=== PATIENT | female | born 1990 | race Caucasian/White ===

== ENCOUNTER 2017-06-17 05:46 | Outpatient (CLI) | payer OTHER ==
--- NOTE | 2017-05-29 02:15 | PN ---
Triage Information Date/Time Weeks of Gestation 27+wks : 2 Para: 0 Diabetes: none Objective Heart Rate: 140's Contractions: None Exam CXL WNL NST reassuring for GA Devon No CTXs Abdo soft NT ND Assessment/Plan Discharged with precautions patient's questions answered MARIELA JUAREZ M.D. May 29, 2017 02:15
[~2017-06-17] VITALS: Ht 152.4 cm; Wt 77.1 kg
[~2017-06-17 05:46] MED LIST: PREN-39 PO
[2017-06-17 06:03] VITALS: Ht 152.4 cm; Wt 77.1 kg
[2017-06-17 06:04] VITALS: BP 107/59; PULSE 82; RESP 18
--- NOTE | 2017-06-17 07:37 | RADRPT ---
PROCEDURE: Biophysical profile CLINICAL INDICATION: distress TECHNIQUE: Color and sullivan-scale ultrasound images of an intrauterine gestation were obtained. COMPARISON: May 29, 2017 FINDINGS: A single live intrauterine gestation is identified in vertex position with an estimated heart rate of 157 beats per minute. The placenta is located posteriorly. The cervix is obscured by head shadows. No evidence of abruption identified. ROYER is 12.8 cm. movement 2/2. tone 2/2. breathing movement 2/2. Qualitative AFV 2/2 Total biophysical profile 07/05 IMPRESSION: 07/05 biophysical profile. RPTAT: AA .Adiel Novoa MD, Date Time Electronically viewed and signed by .Adiel Novoa MD, on 06/17/2017 07:37 .P/
[2017-06-17 07:44] LABS: ADD SCAN DIFF NO
[2017-06-17 07:47] LABS: BASOPHILS % 0.2 % (0.0-2.0); EOSINOPHILS # 0.1 10^3/ul (0.0-0.5); EOSINOPHILS % 0.7 % (0.0-7.0); HEMATOCRIT 34.3 % (37.0-47.0); HEMOGLOBIN 11.4 g/dl (12.0-16.0); LYMPHOCYTES # 1.1 10^3/ul (0.8-2.9); LYMPHOCYTES % 9.2 % (15.0-51.0); MEAN CORPUSCULAR HEMOGLOBIN 28.9 pg (29.0-33.0); MEAN CORPUSCULAR HGB CONC 33.2 g/dl (32.0-37.0); MEAN CORPUSCULAR VOLUME 86.8 fl (82.0-101.0); MEAN PLATELET VOLUME 11.9 fl (7.4-10.4); MONOCYTE # 0.6 10^3/ul (0.3-0.9); MONOCYTES % 4.6 % (0.0-11.0); NEUTROPHIL # 10.4 10^3/ul (1.6-7.5); NEUTROPHILS % 84.6 % (39.0-77.0); PLATELET COUNT 197 10^3/UL (140-415); RED BLOOD COUNT 3.95 10^6/ul (4.20-5.40); RED CELL DISTRIBUTION WIDTH 14.6 % (11.5-14.5); WHITE BLOOD COUNT 12.3 10^3/ul (4.8-10.8)
[2017-06-17 08:09] LABS: ADD UMIC YES; UR ASCORBIC ACID NEGATIVE (NEGATIVE); UR BACTERIA FEW /HPF (NONE SEEN); UR BILIRUBIN (Dip) NEGATIVE (NEGATIVE); UR BLOOD (Dip) 1+ mg/dL (NEGATIVE); UR CLARITY CLOUDY (CLEAR); UR COLOR AMBER (YELLOW); UR GLUCOSE (Dip) NEGATIVE (NEGATIVE); UR KETONES (Dip) NEGATIVE (NEGATIVE); UR LEUKOCYTE ESTERASE (Dip) 3+ Leu/ul (NEGATIVE); UR MUCUS MANY /HPF (NONE SEEN); UR NITRITE (Dip) NEGATIVE (NEGATIVE); UR RBC 8 /HPF (0-5); UR SPECIFIC GRAVITY (Dip) 1.028 (1.003-1.030); UR SQUAMOUS EPITHELIAL CELL MANY /HPF (FEW); UR TOTAL PROTEIN (Dip) 2+ mg/dl (NEGATIVE); UR UROBILINOGEN (Dip) NEGATIVE (NEGATIVE)
[2017-06-17 08:13] LABS: ALBUMIN 3.2 g/dl (3.3-4.9); ALBUMIN/GLOBULIN RATIO 1.06; BILIRUBIN,INDIRECT 0.2 mg/dl (0-1.1); BILIRUBIN,TOTAL 0.2 mg/dl (0.2-1.3); CALCIUM 9.1 mg/dl (8.4-10.2); CREATININE 0.57 mg/dl (0.44-1.00); TOTAL PROTEIN 6.2 g/dl (6.1-8.1)
--- NOTE | 2017-06-17 08:23 | PN ---
Triage Information Date/Time 06/17/800 Weeks of Gestation IUP 30w2d : 3 Para: 1 Diabetes: none Hypertention: none Objective Vital Signs Date Time Temp Pulse Resp B/P Pulse Ox O2 Delivery O2 Flow Rate FiO2 06/17/17 06:04 97.6 82 18 107/59 Room Air Heart Rate: 130's Contractions: >10 Minutes Apart Results/Medications Result Diagram: 06/17/17 07 Results 24 hrs Laboratory Tests Test 06/17/17 07:22 White Blood Count 12.3 #H Red Blood Count 3.95 L Hemoglobin 11.4 L Hematocrit 34.3 L Mean Corpuscular Volume 86.8 Mean Corpuscular Hemoglobin 28.9 L Mean Corpuscular Hemoglobin Concent 33.2 Red Cell Distribution Width 14.6 H Platelet Count 197 Mean Platelet Volume 11.9 H Neutrophils % 84.6 H Lymphocytes % 9.2 L Monocytes % 4.6 Eosinophils % 0.7 Basophils % 0.2 Neutrophils # 10.4 H Lymphocytes # 1.1 Monocytes # 0.6 Eosinophils # 0.1 Basophils # 0.0 Nucleated Red Blood Cells # 0.0 Assessment/Plan IUP 30w 2d AGE Plan clear liquid diet cmp cbc BPP ROYER Lab still pending d/s will be decided by laborist today LISHA TAMAYO MD Jun 17, 2017 08:19
[2017-06-17] MEDS ORDERED: ONDANSETRON 4 MG INJ IV STA (08:52)
[2017-06-17] MEDS ORDERED: LACTATED RINGER'S 1,000 ML IV ONE (09:00)
--- NOTE | 2017-06-17 12:07 | RADRPT ---
PROCEDURE: US OB. CLINICAL INDICATION: Evaluate cervical length. TECHNIQUE: Transabdominal views of the pelvis are available for review. COMPARISON: Earlier study from the same date. FINDINGS: There is a single living intrauterine gestation in breech position. There is a posterior placenta. There is no evidence of previa. There is adequate amniotic fluid with an amniotic fluid index of 1 2.8 cm. Cervical length is 4.4 cm. Cardiac activity is at 148 beats per minute. IMPRESSION: 1. Single living intrauterine gestation in breech position with a closed cervix which measures 4.4 c m in length. RPTAT: [facility] Physician Yojana Date Time Electronically viewed and signed by Physician Yojana on 06/17/2017 12:07 /
--- NOTE | 2017-06-17 12:26 | TRIAGE ---
OB Triage Datetime Report Generated by CPN: 06/17/2017 12:26 Datetime: 06/17/2017 11:46 Labor Evaluation Frequency: 0 Monitor Mode: External Pattern: Normal: <= 5 Contractions in 10 Minutes Resting Tone [place]: Relaxed Heart Rate FHR Baseline Rate: 135 Monitor Mode: External US Variability: Moderate 6-25 bpm Accelerations: 15X15 Decelerations: None Category: Category I Pain Presence: None/Denies Pain Type: N/A Datetime: 06/17/2017 10:31 Stage of : OB Triage Labor Evaluation Frequency: 0 Monitor Mode: External Pattern: Normal: <= 5 Contractions in 10 Minutes Heart Rate FHR Baseline Rate: 145 Variability: Moderate 6-25 bpm Accelerations: 15X15 Decelerations: None Category: Category I Pain Presence: None/Denies Pain Type: N/A Datetime: 06/17/2017 09:32 Labor Evaluation Frequency: 0 Monitor Mode: External Pattern: Normal: <= 5 Contractions in 10 Minutes Heart Rate FHR Baseline Rate: 145 Monitor Mode: External US Variability: Moderate 6-25 bpm Accelerations: 15X15 Decelerations: None Category: Category I Pain Presence: None/Denies Pain Type: N/A Datetime: 06/17/2017 08:13 Stage of : OB Triage Nausea/Vomiting: Present Labor Evaluation Frequency: 0 Monitor Mode: External Pattern: Normal: <= 5 Contractions in 10 Minutes Resting Tone [place]: Relaxed Heart Rate FHR Baseline Rate: 135 Monitor Mode: External US Variability: Absent - Undetectable Accelerations: 15X15 Decelerations: None Category: Category I Datetime: 06/17/2017 07:35 Stage of : OB Triage Labor Evaluation Frequency: 0 Pattern: Normal: <= 5 Contractions in 10 Minutes Resting Tone [place]: Relaxed Heart Rate FHR Baseline Rate: 145 Monitor Mode: External US Variability: Moderate 6-25 bpm Accelerations: 15X15 Decelerations: None Category: Category I Pain Presence: None/Denies Pain Type: N/A Datetime: 06/17/2017 07:00 Stage of : OB Triage Labor Evaluation Frequency: OCCASS Monitor Mode: External Duration (sec)2399: 40-100 Quality: Mild Pattern: Normal: <= 5 Contractions in 10 Minutes Resting Tone [place]: Relaxed Heart Rate FHR Baseline Rate: 140 Monitor Mode: External US Variability: Moderate 6-25 bpm Accelerations: 15X15 Decelerations: None Category: Category I Pain Assessment Pain Scale: 5 Pain Presence: Constant Pain Type: Dull; Ache Pain Location: Abdomen Pain Goal: 3 Pain Relief Measures: Comfort Measures Datetime: 06/17/2017 06:42 Time of Arrival: 06/17/2017 05:40 EGA: 30.2 Arrived By: Wheelchair Arrived From: Home Chief Complaint: DIARRHEA AND VOMITTING SINCE 2299 Movement: Present Contractions: Denies/Absent Rupture of Membranes: Denies Vaginal Bleeding: None Vaginal Discharge: Denies Additional Patient Complaints: DIARRHEAX3, VOMITTING X6 SINCE 2299 Time Provider Notified: 06/17/2017 06:38 Provider Notified: RAIZA, CALL MD FOR ORDERS Initial Plan: EFM, Datetime: 06/17/2017 06:15 Assessment Type: Triage Maternal Assessment Level of Consciousness: Fully Conscious DTR's/Clonus: DTRs 2+; No Clonus Headache: Denies Blurred Vision: No Respiratory Effort: Unlabored; Regular Rhythm; Equal Expansion Breath Sounds, Left: Clear and Equal Breath Sounds, Right: Clear and Equal Nausea/Vomiting: Present RUQ Epigastric Pain: Denies Lower Extremities Edema: None Upper Extremities Edema: None Facial Edema: None Fall Risk Assessment History of Falling: (0) No Secondary Diagnosis: (0) No Ambulatory Aid: (0) Bedrest/Nurse Assist IV Therapy: (0) No Gait: (0) Normal/Bedrest/Immobile Mental Status: (0) Oriented to Own Ability Fall Score: 0 Fall Risk Score Definition: No Risk: No action required Datetime: 05/28/2017 22:14 EGA: 27.3 Datetime: 05/28/2017 21:30 Fall Score: 0 Fall Risk Score Definition: No Risk: No action required
== END 2017-06-17 12:20 | disposition home or self-care (01) ==
LOC: OBT 05:46 → L-D 05:48 → OBT 12:20
PROVIDERS: ATTEND Obstetrics & Gynecology
DX: O26.893 Other specified pregnancy related conditions, third trimester (principal); R19.7 Diarrhea, unspecified; Z3A.30 30 weeks gestation of pregnancy; O21.0 Mild hyperemesis gravidarum
CPT/HCPCS: 76817; 76818; 80053; 81001; 85025; J2405; J7120; 36415; 87086; 96360; 96372; G0463

== ENCOUNTER 2017-07-28 12:45 | Outpatient (CLI) | payer OTHER ==
[~2017-07-28] VITALS: Ht 152.4 cm; Wt 79.7 kg
[2017-07-28 14:06] VITALS: Ht 152.4 cm; Wt 79.7 kg
--- NOTE | 2017-07-28 14:42 | RADRPT ---
PROCEDURE: US biophysical profile. CLINICAL INDICATION: Contractions. Leaking amniotic fluid. TECHNIQUE: Multiple sonographic images of the uterus were obtained. The images were revi ewed on a PACS workstation. COMPARISON: 06/17/2017. FINDINGS: There is a single live intrauterine gestation. heart rate is 137 beats per minute. The position is cephalic. The placenta is posterior grade II with no abruption or previa. The ROYER is 10.1 cm. (Normal = 5-20 cm.) Breathing Movement: 2 Gross Body Movement: 2 Tone: 2 Qualitative Amniotic Fluid Volume: 2 TOTAL: 8 IMPRESSION: 1. The biophysical score is 8/8. RPTAT: QQ .Pedro Luis Taylor MD, MD Date Time Electronically viewed and signed by .Pedro Luis Taylor MD, on 07/28/2017 14:42 .R/
[2017-07-28] MEDS ORDERED: LACTATED RINGER'S 1,000 ML IV SCH (18:44)
[2017-07-28 21:54] LABS: BASOPHILS % 0.3 % (0.0-2.0); EOSINOPHILS # 0.1 10^3/ul (0.0-0.5); HEMOGLOBIN 12.1 g/dl (12.0-16.0); LYMPHOCYTES # 2.4 10^3/ul (0.8-2.9); LYMPHOCYTES % 21.7 % (15.0-51.0); MEAN CORPUSCULAR HGB CONC 33.6 g/dl (32.0-37.0); MEAN CORPUSCULAR VOLUME 86.3 fl (82.0-101.0); MEAN PLATELET VOLUME 12.7 fl (7.4-10.4); MONOCYTE # 0.6 10^3/ul (0.3-0.9); MONOCYTES % 5.4 % (0.0-11.0); NEUTROPHILS % 71.1 % (39.0-77.0); PLATELET COUNT 186 10^3/UL (140-415); RED BLOOD COUNT 4.17 10^6/ul (4.20-5.40); RED CELL DISTRIBUTION WIDTH 15.9 % (11.5-14.5); WHITE BLOOD COUNT 11.1 10^3/ul (4.8-10.8)
--- NOTE | 2017-07-29 00:17 | TRIAGE ---
OB Triage Datetime Report Generated by CPN: 07/29/2017 00:17 Datetime: 07/28/2017 23:00 Labor Evaluation Frequency: 2-4 Monitor Mode: External Duration (sec)2399: 40-60 Quality: Mild Pattern: Normal: <= 5 Contractions in 10 Minutes Resting Tone [place]: Relaxed Heart Rate FHR Baseline Rate: 140 Monitor Mode: External US FHR Baseline Changes: No Baseline Change Variability: Moderate 6-25 bpm Accelerations: 15X15 Decelerations: None Category: Category I Pain Assessment Pain Scale: 2 Pain Presence: Intermittent Pain Type: Cramping Pain Location: Abdomen Pain Assessment Comments: States she feels a uc once in awhile Vaginal Exam Dilatation (cms): 0.5 Effacement (%): 40 Station: -3 Exam By: M Hill Membrane Status: Intact Vaginal Bleeding: None Cervix, Consistency: Moderate Cervix, Position: Posterior Datetime: 07/28/2017 19:00 Labor Evaluation Frequency: X3 Monitor Mode: External Duration (sec)2399: 60-70 Quality: Mild Pattern: Normal: <= 5 Contractions in 10 Minutes Resting Tone [place]: Relaxed Heart Rate FHR Baseline Rate: 150 Monitor Mode: External US FHR Baseline Changes: No Baseline Change Variability: Moderate 6-25 bpm Accelerations: 15X15 Decelerations: None Category: Category I Datetime: 07/28/2017 18:30 Labor Evaluation Frequency: 3-4 Monitor Mode: External Duration (sec)2399: 60-70 Quality: Mild Pattern: Normal: <= 5 Contractions in 10 Minutes Resting Tone [place]: Relaxed Heart Rate FHR Baseline Rate: 150 Monitor Mode: External US FHR Baseline Changes: No Baseline Change Variability: Moderate 6-25 bpm Accelerations: 15X15 Decelerations: None Category: Category I Datetime: 07/28/2017 18:26 Vaginal Exam Dilatation (cms): 0.5 Effacement (%): 50 Station: -2 Exam By: IWLFRIDO BARRY Vaginal Bleeding: None Cervix, Consistency: Firm Cervix, Position: Posterior Presentation 'A': Unable to Assess Lie 'A': Unable to Assess Datetime: 07/28/2017 18:00 Labor Evaluation Frequency: 3-4 Monitor Mode: External Duration (sec)2399: 60-70 Quality: Mild Pattern: Normal: <= 5 Contractions in 10 Minutes Resting Tone [place]: Relaxed Heart Rate FHR Baseline Rate: 150 Monitor Mode: External US FHR Baseline Changes: No Baseline Change Variability: Moderate 6-25 bpm Accelerations: 15X15 Decelerations: None Category: Category I Datetime: 07/28/2017 17:30 Labor Evaluation Frequency: 5-6 Monitor Mode: External Duration (sec)2399: 60-70 Quality: Mild Pattern: Normal: <= 5 Contractions in 10 Minutes Resting Tone [place]: Relaxed Heart Rate FHR Baseline Rate: 150 Monitor Mode: External US FHR Baseline Changes: No Baseline Change Variability: Moderate 6-25 bpm Accelerations: 15X15 Decelerations: None Category: Category I Datetime: 07/28/2017 17:00 Labor Evaluation Frequency: 3-5 Monitor Mode: External Duration (sec)2399: 50-60 Quality: Mild Pattern: Normal: <= 5 Contractions in 10 Minutes Resting Tone [place]: Relaxed Heart Rate FHR Baseline Rate: 150 Monitor Mode: External US FHR Baseline Changes: No Baseline Change Variability: Moderate 6-25 bpm Accelerations: 15X15 Decelerations: None Category: Category I Datetime: 07/28/2017 16:30 Labor Evaluation Frequency: 3-5 Monitor Mode: External Duration (sec)2399: 50-60 Quality: Mild Pattern: Normal: <= 5 Contractions in 10 Minutes Resting Tone [place]: Relaxed Heart Rate FHR Baseline Rate: 150 Monitor Mode: External US FHR Baseline Changes: No Baseline Change Variability: Moderate 6-25 bpm Accelerations: 15X15 Decelerations: None Category: Category I Datetime: 07/28/2017 16:00 Labor Evaluation Frequency: 3-5 Monitor Mode: External Duration (sec)2399: 50-60 Quality: Mild Pattern: Normal: <= 5 Contractions in 10 Minutes Resting Tone [place]: Relaxed Heart Rate FHR Baseline Rate: 150 Monitor Mode: External US FHR Baseline Changes: No Baseline Change Variability: Moderate 6-25 bpm Accelerations: 15X15 Decelerations: None Category: Category I Datetime: 07/28/2017 15:30 Labor Evaluation Frequency: X2 Monitor Mode: External Duration (sec)2399: 50-60 Quality: Mild Pattern: Normal: <= 5 Contractions in 10 Minutes Resting Tone [place]: Relaxed Heart Rate FHR Baseline Rate: 150 Monitor Mode: External US FHR Baseline Changes: No Baseline Change Variability: Moderate 6-25 bpm Accelerations: 15X15 Decelerations: None Category: Category I Datetime: 07/28/2017 15:01 Vaginal Exam Dilatation (cms): 0.5 Effacement (%): 50 Station: -2 Exam By: WILFRIDO BARRY Vaginal Bleeding: None Cervix, Consistency: Firm Cervix, Position: Posterior Presentation 'A': Unable to Assess Lie 'A': Unable to Assess Datetime: 07/28/2017 15:00 Labor Evaluation Frequency: 5-6 Monitor Mode: External Duration (sec)2399: 40-50 Quality: Mild Pattern: Normal: <= 5 Contractions in 10 Minutes Resting Tone [place]: Relaxed Heart Rate FHR Baseline Rate: 150 Monitor Mode: External US FHR Baseline Changes: No Baseline Change Variability: Moderate 6-25 bpm Accelerations: 15X15 Decelerations: None Category: Category I Datetime: 07/28/2017 14:30 Labor Evaluation Frequency: 5-6 Monitor Mode: External Duration (sec)2399: 40-50 Quality: Mild Pattern: Normal: <= 5 Contractions in 10 Minutes Resting Tone [place]: Relaxed Heart Rate FHR Baseline Rate: 150 Monitor Mode: External US FHR Baseline Changes: No Baseline Change Variability: Moderate 6-25 bpm Accelerations: 15X15 Decelerations: None Category: Category I Datetime: 07/28/2017 14:00 Labor Evaluation Frequency: 4-5 Monitor Mode: External Duration (sec)2399: 40-50 Quality: Mild Pattern: Normal: <= 5 Contractions in 10 Minutes Resting Tone [place]: Relaxed Heart Rate FHR Baseline Rate: 150 Monitor Mode: External US FHR Baseline Changes: No Baseline Change Variability: Moderate 6-25 bpm Accelerations: 15X15 Decelerations: None Category: Category I Datetime: 07/28/2017 13:27 Stage of : OB Triage Maternal Assessment Level of Consciousness: Fully Conscious DTR's/Clonus: DTRs 2+; No Clonus Headache: Denies Blurred Vision: No Respiratory Effort: Unlabored Breath Sounds, Left: Clear and Equal Breath Sounds, Right: Clear and Equal Nausea/Vomiting: Denies RUQ Epigastric Pain: Denies Facial Edema: None Labor Evaluation Frequency: 3-4 Monitor Mode: External Duration (sec)2399: 40-50 Quality: Mild Pattern: Normal: <= 5 Contractions in 10 Minutes Resting Tone [place]: Relaxed Heart Rate FHR Baseline Rate: 150 Monitor Mode: External US FHR Baseline Changes: No Baseline Change Variability: Moderate 6-25 bpm Accelerations: 15X15 Decelerations: None Category: Category I Pain Assessment Pain Scale: 0 Pain Presence: None/Denies Pain Type: N/A Pain Goal: 0 Datetime: 07/28/2017 13:20 Time of Arrival: 07/28/2017 12:40 EGA: 36.1 Arrived By: Ambulatory Arrived From: Home Chief Complaint: R/O SROM Movement: Present Contractions: Denies/Absent Rupture of Membranes: Unsure Vaginal Bleeding: None Vaginal Discharge: Denies Recent Sexual Intercouse: Denies Abdominal Trauma: Not Applicable Patient Complaints: None Datetime: 06/17/2017 06:42 EGA: 30.2 Datetime: 06/17/2017 06:15 Fall Risk Assessment Fall Score: 0 Fall Risk Score Definition: No Risk: No action required Datetime: 05/28/2017 22:14 EGA: 27.3 Datetime: 05/28/2017 21:30 Fall Risk Assessment Fall Score: 0 Fall Risk Score Definition: No Risk: No action required
--- NOTE | 2017-07-29 00:23 | PN ---
Triage Information Date/Time 07/29/1712/14/13 Reason for visit: leading fluid since 0800 Weeks of Gestation 36w1d /Para G3P!A1(iab) Diabetes: none Hypertention: none Objective Heart Rate: 150's Contractions: < 5 Minutes Apart Exam spec exam neg for pooling\ ROM plus Neg x3 VE at 1500 1830 2300 FTP/50%/-2 no change Results/Medications Result Diagram: 07/28/172030 Results 24 hrs Laboratory Tests Test 07/28/17 14:50 07/28/17 20:31 Membranes Rupture NEGATIVE White Blood Count 11.1 H Red Blood Count 4.17 L Hemoglobin 12.1 Hematocrit 36.0 L Mean Corpuscular Volume 86.3 Mean Corpuscular Hemoglobin 29.0 Mean Corpuscular Hemoglobin Concent 33.6 Red Cell Distribution Width 15.9 H Platelet Count 186 Mean Platelet Volume 12.7 H Neutrophils % 71.1 Lymphocytes % 21.7 Monocytes % 5.4 Eosinophils % 1.0 Basophils % 0.3 Nucleated Red Blood Cells % 0.0 Neutrophils # (Manual) 7.9 H Lymphocytes # 2.4 Monocytes # 0.6 Eosinophils # 0.1 Basophils # 0.0 Nucleated Red Blood Cells # 0.0 Medications Current Medications Lactated Ringer's (Lr) 1,000 ml @ 125 mls/hr Q8H IV Last administered on t 20:31; Admin Dose 125 MLS/HR; Start 07/28/17 at 18:44 Imaging Results BPP07/05 ROYER 10.1 Disposition: Discharge Assessment/Plan IUP 36w1d no prom NIL PLAN discharge home with routine labor instructions LISHA TAMAYO MD Jul 29, 2017 00:23
== END 2017-07-29 00:15 | disposition home or self-care (01) ==
LOC: OBT 12:45 → L-D 12:46 → OBT 07-29 00:15
PROVIDERS: ATTEND Obstetrics & Gynecology
DX: O41.93X0 Disorder of amniotic fluid and membranes, unspecified, third trimester, not applicable or unspecified (principal); Z3A.36 36 weeks gestation of pregnancy
CPT/HCPCS: 76818; 84112; 85025; J7120; 36415; 96360; 96361; G0463

== ENCOUNTER 2017-08-07 19:46 | Outpatient (CLI) | payer OTHER ==
[~2017-08-07] VITALS: Ht 152.4 cm; Wt 80.5 kg
[2017-08-07 20:17] VITALS: Ht 152.4 cm; Wt 80.5 kg
[2017-08-07 20:18] VITALS: BP 95/62; PULSE 75; RESP 18
[2017-08-07 21:16] LABS: ADD UMIC YES; UR ASCORBIC ACID NEGATIVE (NEGATIVE); UR BACTERIA FEW /HPF (NONE SEEN); UR BILIRUBIN (Dip) NEGATIVE (NEGATIVE); UR BLOOD (Dip) NEGATIVE (NEGATIVE); UR CLARITY CLOUDY (CLEAR); UR COLOR YELLOW (YELLOW); UR GLUCOSE (Dip) NEGATIVE (NEGATIVE); UR KETONES (Dip) NEGATIVE (NEGATIVE); UR LEUKOCYTE ESTERASE (Dip) 3+ Leu/ul (NEGATIVE); UR NITRITE (Dip) NEGATIVE (NEGATIVE); UR RBC 1 /HPF (0-5); UR SPECIFIC GRAVITY (Dip) 1.012 (1.003-1.030); UR SQUAMOUS EPITHELIAL CELL FEW /HPF (FEW); UR TOTAL PROTEIN (Dip) NEGATIVE (NEGATIVE); UR UROBILINOGEN (Dip) NEGATIVE (NEGATIVE)
--- NOTE | 2017-08-07 21:57 | RADRPT ---
PROCEDURE: Obstetrical ultrasound for biophysical profile CLINICAL INDICATION: Biophysical profile. . TECHNIQUE: Obstetrical ultrasound of the uterus for biophysical profile. Transabdominal views are obtained. COMPARISON: 07/28/2017 FINDINGS: Single intrauterine gestation. Presentation: Cephalic. Placenta: Fundal No evidence of placental abruption. No evidence of placenta previa. breathing movement = 2/2 tone = 2/2 motion = 2/2 ROYER = 2/2 ROYER = 8.2 cm, previously 10.0 cm heart rate: 161 beats per minute IMPRESSION: Single intrauterine gestation. Biophysical profile 07/05 RPTAT: AADD .Manan Christianson MD, MD Date Time Electronically viewed and signed by .Manan Christianson MD, on 08/07/2017 21:57 .B/
--- NOTE | 2017-08-07 23:11 | PN ---
Triage Information Date/Time Reason for visit: SROM Weeks of Gestation 37 weeks and 4 days of gestation presents with chief complaint of leaking fluid /Para 3 para 1 Diabetes: none Hypertention: none Objective Vital Signs Date Time Temp Pulse Resp B/P Pulse Ox O2 Delivery O2 Flow Rate FiO2 08/07/17 20:18 98.0 75 18 95/62 Room Air Heart Rate: 140's Heart Rate Comments NST is reactive Contractions: None Results/Medications Results 24 hrs Laboratory Tests Test 08/07/17 19:55 08/07/17 20:33 Membranes Rupture NEGATIVE Urine Color YELLOW Urine Clarity CLOUDY A Urine pH 7.0 Urine Specific [place] 1.012 Urine Ketones NEGATIVE Urine Nitrite NEGATIVE Urine Bilirubin NEGATIVE Urine Urobilinogen NEGATIVE Urine Leukocyte Esterase 3+ H Urine Microscopic RBC 1 Urine Microscopic WBC 4 Urine Squamous Epithelial Cells FEW Urine Bacteria FEW A Urine Hemoglobin NEGATIVE Urine Glucose NEGATIVE Urine Total Protein NEGATIVE Imaging Results PROCEDURE: Obstetrical ultrasound for biophysical profile CLINICAL INDICATION: Biophysical profile. . TECHNIQUE: Obstetrical ultrasound of the uterus for biophysical profile. Transabdominal views are obtained. COMPARISON: 07/28/2017 FINDINGS: Single intrauterine gestation. Presentation: Cephalic. Placenta: Fundal No evidence of placental abruption. No evidence of placenta previa. breathing movement = 2/2 tone = 2/2 motion = 2/2 ROYER = 2/2 ROEYR = 8.2 cm, previously 10.0 cm heart rate: 161 beats per minute IMPRESSION: Single intrauterine gestation. Biophysical profile 07/05 RPTAT: AADD .Manan Christianson MD, MD Date Time Electronically viewed and signed by .Manan Christianson MD, on 08/07/2017 21:57 .B/ Disposition: Discharge Assessment/Plan Prescription for Macrobid was given Patient to return in 2 days for repeat BPP/ROYER IVY MICHAEL MD Aug 07, 2017 23:11
--- NOTE | 2017-08-08 00:27 | TRIAGE ---
OB Triage Datetime Report Generated by CPN: 08/08/2017 00:26 Datetime: 08/07/2017 23:34 Stage of : OB Triage Labor Evaluation Frequency: 2-6 Monitor Mode: External Duration (sec)2399: 40-90 Quality: Mild Resting Tone [place]: Relaxed Heart Rate FHR Baseline Rate: 120 Monitor Mode: External US Variability: Moderate 6-25 bpm Accelerations: 15X15 Decelerations: None Category: Category I Datetime: 08/07/2017 23:33 Stage of : OB Triage Vaginal Exam Dilatation (cms): 0.0 Effacement (%): 20 Station: -3 Exam By: MYLENE Vaginal Bleeding: None Cervix, Consistency: Firm Cervix, Position: Posterior Presentation 'A': Cephalic Datetime: 08/07/2017 23:27 Stage of : OB Triage Datetime: 08/07/2017 23:01 Stage of : OB Triage Labor Evaluation Frequency: 2-6 Monitor Mode: External Duration (sec)2399: 40-110 Quality: Mild Resting Tone [place]: Relaxed Heart Rate FHR Baseline Rate: 120 Monitor Mode: External US Variability: Moderate 6-25 bpm Accelerations: 15X15 Decelerations: None Category: Category I Datetime: 08/07/2017 22:39 Stage of : OB Triage Datetime: 08/07/2017 22:00 Stage of : OB Triage Labor Evaluation Frequency: 2-5 Monitor Mode: External Duration (sec)2399: 50-120 Resting Tone [place]: Relaxed Heart Rate FHR Baseline Rate: 125 Monitor Mode: External US Variability: Moderate 6-25 bpm Accelerations: 15X15 Decelerations: None Category: Category I Datetime: 08/07/2017 21:22 Stage of : OB Triage Datetime: 08/07/2017 21:00 Stage of : OB Triage Labor Evaluation Frequency: 2-7 Monitor Mode: External Duration (sec)2399: 40-90 Quality: Mild Resting Tone [place]: Relaxed Heart Rate FHR Baseline Rate: 125 Monitor Mode: External US Variability: Moderate 6-25 bpm Accelerations: 15X15 Decelerations: None Category: Category I Datetime: 08/07/2017 20:55 Stage of : OB Triage Vaginal Exam Dilatation (cms): 0.0 Effacement (%): 30 Station: -3 Exam By: [facility] [place] Vaginal Bleeding: None Cervix, Consistency: Firm Cervix, Position: Posterior Presentation 'A': Cephalic Datetime: 08/07/2017 20:43 Stage of : OB Triage Datetime: 08/07/2017 20:13 Assessment Type: Triage Maternal Assessment Level of Consciousness: Fully Conscious DTR's/Clonus: DTRs 2+; No Clonus Headache: Denies Blurred Vision: No Respiratory Effort: Unlabored Breath Sounds, Left: Clear and Equal Breath Sounds, Right: Clear and Equal Nausea/Vomiting: Denies RUQ Epigastric Pain: Denies Lower Extremities Edema: Bilateral Lower Extremities Degree: 1+ Upper Extremities Edema: None Degree: None Facial Edema: None Fall Risk Assessment History of Falling: (0) No Secondary Diagnosis: (0) No Ambulatory Aid: (0) Bedrest/Nurse Assist IV Therapy: (0) No Gait: (0) Normal/Bedrest/Immobile Mental Status: (0) Oriented to Own Ability Fall Score: 0 Fall Risk Score Definition: No Risk: No action required Datetime: 08/07/2017 20:11 Time of Arrival: 08/07/2017 19:45 EGA: 37.4 Arrived By: Ambulatory Arrived From: Home Chief Complaint: leaking x 2 since 0500. ucs, back pain Movement: Present Contractions: Irregular Time Contractions Began: 08/07/2017 05:30 Contractions: irregular Rupture of Membranes: Unsure Vaginal Bleeding: None Vaginal Discharge: Denies Recent Sexual Intercouse: Yes Abdominal Trauma: Not Applicable Patient Complaints: Contractions; Back Pain; Other Initial Plan: VS, EFM, UA, ROM+. BPP, SVE Datetime: 08/07/2017 20:06 Stage of : OB Triage Monitor Mode: External Contraction Comments: APPLIED Monitor Mode: External US Comments: APPLIED Datetime: 08/07/2017 19:53 Stage of : OB Triage Datetime: 08/07/2017 19:50 Stage of : OB Triage Datetime: 07/28/2017 23:10 Stage of : OB Triage Labor Evaluation Frequency: 2-5 Monitor Mode: External Duration (sec)2399: 60 Quality: Mild Pattern: Normal: <= 5 Contractions in 10 Minutes Resting Tone [place]: Relaxed Heart Rate FHR Baseline Rate: 135 Monitor Mode: External US FHR Baseline Changes: No Baseline Change Variability: Moderate 6-25 bpm Accelerations: 15X15 Decelerations: None Category: Category I Datetime: 07/28/2017 13:20 EGA: 36.1 Datetime: 06/17/2017 06:42 EGA: 30.2 Datetime: 06/17/2017 06:15 Fall Score: 0 Fall Risk Score Definition: No Risk: No action required Datetime: 05/28/2017 22:14 EGA: 27.3 Datetime: 05/28/2017 21:30 Fall Score: 0 Fall Risk Score Definition: No Risk: No action required
== END 2017-08-08 | disposition home or self-care (01) ==
LOC: OBT 19:46 → L-D 19:47 → OBT 08-08
PROVIDERS: ATTEND Obstetrics & Gynecology
DX: O42.92 Full-term premature rupture of membranes, unspecified as to length of time between rupture and onset of labor (principal); Z3A.37 37 weeks gestation of pregnancy
CPT/HCPCS: 76818; 81001; 84112; 87086; Z7500; G0463

== ENCOUNTER 2017-08-10 14:05 | Outpatient (CLI) | payer OTHER ==
[~2017-08-10] VITALS: Ht 152.4 cm; Wt 81.0 kg
[2017-08-10 14:37] VITALS: BP 98/61; PULSE 80
--- NOTE | 2017-08-10 15:19 | RADRPT ---
PROCEDURE: US OB biophysical profile. CLINICAL INDICATION: decreased movements TECHNIQUE: Multiple sonographic images of the pelvis were obtained. The images were reviewed on a PACS workstation. COMPARISON: 08/07/17 FINDINGS: There is a single viable intrauterine gestation. Cardiac activity is present with 158 beats per min darcie. There is a vertex presentation. The placenta is right lateral. There is no evidence of placental abruption. There is a slightly decreased amount of amniotic fluid with an ROYER = 7.5 cm. Biophysical profile: movement 2/2 tone 2/2. breathing 2/2 ROYER 2/2 Total 07/05 RPTAT: AA . IMPRESSION: Normal biophysical profile. Slightly decreased ROYER. . .Arron Wynne MD, Date Time Electronically viewed and signed by .Arron Wynne MD, MD on 08/10/2017 15:18 .S/
--- NOTE | 2017-08-10 17:27 | TRIAGE ---
OB Triage Datetime Report Generated by CPN: 08/10/2017 17:27 Datetime: 08/10/2017 16:33 Stage of : OB Triage Datetime: 08/10/2017 16:10 Labor Evaluation Frequency: 5-7 Monitor Mode: External Duration (sec)2399: 50-70 Pattern: Normal: <= 5 Contractions in 10 Minutes Resting Tone [place]: Relaxed Heart Rate FHR Baseline Rate: 135 Monitor Mode: External US Variability: Moderate 6-25 bpm Accelerations: 10X10 Decelerations: None Category: Category I Pain Assessment Pain Scale: 0 Pain Presence: None/Denies Pain Type: N/A Pain Goal: 3 Pain Relief Measures: Comfort Measures Datetime: 08/10/2017 15:43 Stage of : OB Triage Datetime: 08/10/2017 15:33 Labor Evaluation Frequency: 5-7 Monitor Mode: External Duration (sec)2399: 50-70 Quality: Mild Pattern: Normal: <= 5 Contractions in 10 Minutes Resting Tone [place]: Relaxed Heart Rate FHR Baseline Rate: 135 Monitor Mode: External US Variability: Moderate 6-25 bpm Accelerations: 10X10 Decelerations: None Category: Category I Pain Assessment Pain Scale: 0 Pain Presence: None/Denies Pain Type: N/A Pain Goal: 3 Pain Relief Measures: Comfort Measures Datetime: 08/10/2017 14:34 Time of Arrival: 08/10/2017 13:57 EGA: 38.0 Arrived By: Ambulatory Arrived From: Home Chief Complaint: F/U ROYER, DENIES LEAKING, BLEEDING OR UC'S Movement: Present Contractions: Denies/Absent Rupture of Membranes: Denies Vaginal Bleeding: None Vaginal Discharge: Denies Recent Sexual Intercouse: Denies Abdominal Trauma: Not Applicable Patient Complaints: None Time Provider Notified: 08/10/2017 15:43 Provider Notified: ESHAGHIAN Initial Plan: MONITOR, BPP/ROYER Datetime: 08/10/2017 14:28 Stage of : OB Triage Assessment Type: Triage Maternal Assessment Level of Consciousness: Fully Conscious DTR's/Clonus: DTRs 2+; No Clonus Headache: Denies Blurred Vision: No Respiratory Effort: Unlabored; Regular Rhythm; Equal Expansion Breath Sounds, Left: Clear and Equal Breath Sounds, Right: Clear and Equal Nausea/Vomiting: Denies RUQ Epigastric Pain: Denies Facial Edema: None Temperature Route: Axillary Fall Risk Assessment History of Falling: (0) No Secondary Diagnosis: (0) No Ambulatory Aid: (0) Bedrest/Nurse Assist IV Therapy: (0) No Gait: (0) Normal/Bedrest/Immobile Mental Status: (0) Oriented to Own Ability Fall Score: 0 Fall Risk Score Definition: No Risk: No action required Labor Evaluation Frequency: 0 Monitor Mode: External Resting Tone [place]: Relaxed Heart Rate FHR Baseline Rate: 135 Monitor Mode: External US Variability: Moderate 6-25 bpm Accelerations: None Decelerations: None Pain Assessment Pain Scale: 0 Pain Presence: None/Denies Pain Type: N/A Pain Goal: 3 Pain Relief Measures: Comfort Measures Datetime: 08/07/2017 23:45 Time of Arrival: 08/03/2017 13:57 EGA: 37.0 Arrived By: Ambulatory Arrived From: Home Chief Complaint: F/U ROYER, DENIES LEAKING, BLEEDING OR UCS' Movement: Present Contractions: Denies/Absent Rupture of Membranes: Denies Vaginal Bleeding: None Vaginal Discharge: Denies Recent Sexual Intercouse: Denies Abdominal Trauma: Not Applicable Initial Plan: MONITOR, BPP/ROYER Datetime: 08/07/2017 20:13 Fall Score: 0 Fall Risk Score Definition: No Risk: No action required Datetime: 08/07/2017 20:11 EGA: 37.4 Datetime: 07/28/2017 13:20 EGA: 36.1 Datetime: 06/17/2017 06:42 EGA: 30.2 Datetime: 06/17/2017 06:15 Fall Score: 0 Fall Risk Score Definition: No Risk: No action required Datetime: 05/28/2017 22:14 EGA: 27.3 Datetime: 05/28/2017 21:30 Fall Score: 0 Fall Risk Score Definition: No Risk: No action required
--- NOTE | 2017-08-10 23:04 | PN ---
Triage Information Date/Time August 10, 2017 Reason for visit: Checking amniotic fluid Weeks of Gestation 38 weeks /Para 3 para 1 Diabetes: none Hypertention: none Additional information 27-year-old 3 para 1 with IUP at 38 weeks with care with Dr. Issa presented to triage for repeat ultrasound for evaluation of ROYER due to borderline ROYER noted in prior ultrasound 3 days ago when she presented for rule out SROM. Patient presented 3 days ago for rule out SROM, noted to have intact membrane ROYER was 8.2 BPP was normal Today NST reactive and BPP 7.5. Patient denies any complaint. Denies any leaking of fluid, vaginal bleeding or decreased movement or any other complaint. Objective Vital Signs Date Time Temp Pulse Resp B/P Pulse Ox O2 Delivery O2 Flow Rate FiO2 08/10/17 14:37 97.9 80 98/61 Heart Rate: 130's Contractions: None Results/Medications Imaging Results PROCEDURE: US OB biophysical profile. CLINICAL INDICATION: decreased movements TECHNIQUE: Multiple sonographic images of the pelvis were obtained. The images were reviewed on a PACS workstation. COMPARISON: 08/07/17 FINDINGS: There is a single viable intrauterine gestation. Cardiac activity is present with 158 beats per minute. There is a vertex presentation. The placenta is right lateral. There is no evidence of placental abruption. There is a slightly decreased amount of amniotic fluid with an ROYER = 7.5 cm. Biophysical profile: movement 2/2 tone 2/2. breathing 2/2 ROYER 2/2 Total 07/05 RPTAT: AA . IMPRESSION: Normal biophysical profile. Slightly decreased ROYER. . Disposition: Discharge Assessment/Plan IUP at 38 weeks Borderline ROYER No oligohydramnios No evidence of labor or decreased movement Advised the patient about adequate hydration and repeat her ROYER in 3 days again Follow-up with OB office after discharge from the hospital Patient verbalized understanding all above discussion Strict labor precaution and kick count discussed KHANH GARDNER MD Aug 10, 2017 23:04
== END 2017-08-10 17:07 | disposition home or self-care (01) ==
LOC: OBT 14:05 → L-D 14:05 → OBT 17:07
PROVIDERS: ATTEND Obstetrics & Gynecology
DX: O41.93X0 Disorder of amniotic fluid and membranes, unspecified, third trimester, not applicable or unspecified (principal); O36.8130 Decreased fetal movements, third trimester, not applicable or unspecified; Z3A.38 38 weeks gestation of pregnancy
CPT/HCPCS: 76818; Z7500; G0463

== ENCOUNTER 2017-08-13 12:49 | Inpatient (IN) | payer OTHER ==
[~2017-08-13] VITALS: Ht 152.4 cm; Wt 82.0 kg
[2017-08-13 13:03] VITALS: Ht 152.4 cm; Wt 82.0 kg
[2017-08-13 13:05] VITALS: BP 100/59; PULSE 103; RESP 20
--- NOTE | 2017-08-13 13:25 | RADRPT ---
PROCEDURE: US OB biophysical profile. CLINICAL INDICATION: decreased movements, low ROYER TECHNIQUE: Multiple sonographic images of the pelvis were obtained. The images were reviewed on a PACS workstation. COMPARISON: 08/10/2017 FINDINGS: There is a single viable intrauterine gestation. Cardiac activity is present with 154 beats per min samish. There is a vertex presentation. The placenta is posterior. There is no evidence of placental abruption. There is a normal amount of amniotic fluid with an ROYER = 6.5 cm. Biophysical profile: movement 2/2 tone 2/2. breathing 2/2 ROYER 2/2 Total 07/05 RPTAT: AA . IMPRESSION: Normal biophysical profile. Oligohydramnios, slightly worsened. . .Arron Wynne MD, MD Date Time Electronically viewed and signed by .Arron Wynne MD, MD on 08/13/2017 13:24 .S/
--- NOTE | 2017-08-13 16:58 | TRIAGE ---
OB Triage Datetime Report Generated by CPN: 08/13/2017 16:57 Datetime: 08/13/2017 16:53 Time of Arrival: 08/13/2017 14:30 EGA: 38.3 Arrived By: Ambulatory Arrived From: Home Chief Complaint: FU ROYER Movement: Present Contractions: Irregular Rupture of Membranes: Denies Vaginal Bleeding: None Vaginal Discharge: Denies Recent Sexual Intercouse: Denies Abdominal Trauma: Not Applicable Patient Complaints: None Time Provider Notified: 08/13/2017 13:00 Provider Notified: DR JONES Initial Plan: EFM,CALL DR ISSA Datetime: 08/13/2017 15:24 Maternal Assessment Level of Consciousness: Fully Conscious DTR's/Clonus: DTRs 2+ Headache: Denies Blurred Vision: No Nausea/Vomiting: Denies RUQ Epigastric Pain: Denies Facial Edema: None Labor Evaluation Frequency: IRREG Monitor Mode: External Duration (sec)2399: 60 Quality: Mild Pattern: Normal: <= 5 Contractions in 10 Minutes Resting Tone [place]: Relaxed Heart Rate FHR Baseline Rate: 140 Monitor Mode: External US FHR Baseline Changes: No Baseline Change Variability: Moderate 6-25 bpm Accelerations: 15X15 Decelerations: None Category: Category I Pain Assessment Pain Scale: 2 Pain Presence: Intermittent Pain Type: Cramping Pain Location: Abdomen Vaginal Exam Membrane Status: Intact Datetime: 08/13/2017 14:17 Maternal Assessment Level of Consciousness: Fully Conscious DTR's/Clonus: DTRs 2+ Headache: Denies Blurred Vision: No Nausea/Vomiting: Denies RUQ Epigastric Pain: Denies Facial Edema: None Labor Evaluation Frequency: MILD IRREG Monitor Mode: External Quality: Mild Pattern: Normal: <= 5 Contractions in 10 Minutes Resting Tone [place]: Relaxed Heart Rate FHR Baseline Rate: 140 Monitor Mode: External US FHR Baseline Changes: No Baseline Change Variability: Moderate 6-25 bpm Accelerations: 15X15 Decelerations: None Category: Category I Pain Assessment Pain Scale: 2 Pain Presence: Intermittent Pain Type: Cramping Pain Location: Abdomen Vaginal Exam Membrane Status: Intact Datetime: 08/13/2017 13:47 Comments: Dr. Singh was informed on Dr. Issa request to evaluate pt . for low ROYER. MD will come to evaluate pt Datetime: 08/13/2017 13:46 Comments: DrAb Issa was informed of pt's ROYER results of 6.5 (previously on08/10 7.5). New order to have Dr. Edwardt (laborist) evaluate pt. Datetime: 08/10/2017 14:34 EGA: 38.0 Datetime: 08/10/2017 14:28 Fall Risk Assessment Fall Score: 0 Fall Risk Score Definition: No Risk: No action required Datetime: 08/07/2017 23:45 EGA: 37.0 Datetime: 08/07/2017 20:13 Fall Risk Assessment Fall Score: 0 Fall Risk Score Definition: No Risk: No action required Datetime: 08/07/2017 20:11 EGA: 37.4 Datetime: 07/28/2017 13:20 EGA: 36.1 Datetime: 06/17/2017 06:42 EGA: 30.2 Datetime: 06/17/2017 06:15 Fall Risk Assessment Fall Score: 0 Fall Risk Score Definition: No Risk: No action required Datetime: 05/28/2017 22:14 EGA: 27.3 Datetime: 05/28/2017 21:30 Fall Risk Assessment Fall Score: 0 Fall Risk Score Definition: No Risk: No action required
[2017-08-13] MEDS ORDERED: IBUPROFEN 600 MG TAB PO PRN (17:00)
[2017-08-13] MEDS ORDERED: MISOPROSTOL 200 MCG TAB PR PRN (17:00)
[2017-08-13] MEDS ORDERED: OXYTOCIN 30 UNITS/LR 500 ML IV PRN (17:00)
[2017-08-13] MEDS ORDERED: BUTORPHANOL 2 MG INJ IV PRN (17:00)
[2017-08-13] MEDS ORDERED: CARBOPROST 250 MCG INJ IM PRN (17:00)
[2017-08-13] MEDS ORDERED: AMPICILLIN 2 GM/NS (PMX) 100 ML IV ONE (17:00)
[2017-08-13] MEDS ORDERED: METHYLERGONOVINE 0.2 MG INJ IM PRN (17:00)
[2017-08-13] MEDS ORDERED: OXYTOCIN 30 UNITS/LR 500 ML IV SCH ×2 (17:00)
[2017-08-13] MEDS ORDERED: LIDOCAINE 1% (MPF) 30 ML INJ INJ PRN (17:00)
--- NOTE | 2017-08-13 17:38 | RADRPT ---
PROCEDURE: Obstetrical ultrasound. CLINICAL INDICATION: , evaluation. Pelvic pain. Macrosomia TECHNIQUE: Transabdominal sonographic images of the uterus obtained after first trimester , greater than 14 weeks gestation. Single intrauterine gestation present. COMPARISON: 04/06/2017 FINDINGS: Single intrauterine gestation. There is a cephalic presentation. Measurements were made in order to determine age. The results are as follows: BPD = 35 weeks 2 day(s) HC = 35 weeks 3 day(s) AC = 35 weeks 3 day(s) FL = 36 weeks 0 day(s) ROYER = not measured. Heart rate = 140 beats per minute The placenta is fundal - maternal left. There is no evidence for an abruption or placenta previa. Ovaries are not visualized. IMPRESSION: Single intrauterine gestation of approximately 35 weeks 4 days by ultrasound criteria. [place] estimated weight = 2708 g; 4.3 percentile for reported gestational age of 39 weeks 1 d ays. Recommend reconfirmation of gestational age. RPTAT: AADD .Manan Christianson MD, Date Time Electronically viewed and signed by .Manan Christianson MD, on 08/13/2017 17:38 .B/
[2017-08-13] MEDS: LACTATED RINGER'S 1,000 ML IV SCH (19:02)
[2017-08-13 19:12] LABS: BASOPHILS % 0.3 % (0.0-2.0); EOSINOPHILS # 0.2 10^3/ul (0.0-0.5); EOSINOPHILS % 1.9 % (0.0-7.0); HEMATOCRIT 37.3 % (37.0-47.0); HEMOGLOBIN 11.9 g/dl (12.0-16.0); LYMPHOCYTES # 2.3 10^3/ul (0.8-2.9); LYMPHOCYTES % 25.3 % (15.0-51.0); MEAN CORPUSCULAR HEMOGLOBIN 28.2 pg (29.0-33.0); MEAN CORPUSCULAR HGB CONC 31.9 g/dl (32.0-37.0); MEAN CORPUSCULAR VOLUME 88.4 fl (82.0-101.0); MEAN PLATELET VOLUME 12.7 fl (7.4-10.4); MONOCYTE # 0.5 10^3/ul (0.3-0.9); MONOCYTES % 5.2 % (0.0-11.0); NEUTROPHIL # 5.9 10^3/ul (1.6-7.5); NEUTROPHILS % 66.4 % (39.0-77.0); PLATELET COUNT 174 10^3/UL (140-415); RED BLOOD COUNT 4.22 10^6/ul (4.20-5.40); RED CELL DISTRIBUTION WIDTH 15.9 % (11.5-14.5); WHITE BLOOD COUNT 8.9 10^3/ul (4.8-10.8)
[2017-08-13 19:44] LABS: INR 1.07; PROTIME 13.9 Sec (12.2-14.2); PT RATIO 1.1
--- NOTE | 2017-08-13 20:00 | HP ---
Date/Time of Note Date/Time of Note DATE: 08/13/17 TIME: 19:55 OB - History Hx of Present Free Text/Dictation 3 para 1 at 39 weeks and 1 day of gestation presents with decreased amniotic fluid Amniotic fluid yesterday 7.5 Amniotic fluid today 6.5 Chief Complaint: Early labor contractions Estimated Due Date: Aug 19, 2017 : 3 Para: 1 Care: Good Care Abnormal Ultrasound Findings: PROCEDURE: US OB biophysical profile. CLINICAL INDICATION: decreased movements, low ROYER TECHNIQUE: Multiple sonographic images of the pelvis were obtained. The images were reviewed on a PACS workstation. COMPARISON: 08/10/2017 FINDINGS: There is a single viable intrauterine gestation. Cardiac activity is present with 154 beats per minute. There is a vertex presentation. The placenta is posterior. There is no evidence of placental abruption. There is a normal amount of amniotic fluid with an ROYER = 6.5 cm. Biophysical profile: movement 2/2 tone 2/2. breathing 2/2 ROYER 2/2 Total 07/05 RPTAT: AA . IMPRESSION: Normal biophysical profile. Oligohydramnios, slightly worsened. . .Arron Wynne MD, MD Date Time Electronically viewed and signed by .Arron Wynne MD, MD on 08/13/2017 13: 24 .S/ CC: OLI SPAIN MD PROCEDURE: Obstetrical ultrasound. CLINICAL INDICATION: , evaluation. Pelvic pain. Macrosomia TECHNIQUE: Transabdominal sonographic images of the uterus obtained after first trimester, greater than 14 weeks gestation. Single intrauterine gestation present. COMPARISON: 04/06/2017 FINDINGS: Single intrauterine gestation. There is a cephalic presentation. Measurements were made in order to determine age. The results are as follows: BPD = 35 weeks 2 day(s) HC = 35 weeks 3 day(s) AC = 35 weeks 3 day(s) FL = 36 weeks 0 day(s) ROYER = not measured. Heart rate = 140 beats per minute The placenta is fundal - maternal left. There is no evidence for an abruption or placenta previa. Ovaries are not visualized. IMPRESSION: Single intrauterine gestation of approximately 35 weeks 4 days by ultrasound criteria. [place] estimated weight = 2708 g; 4.3 percentile for reported gestational age of 39 weeks 1 days. Recommend reconfirmation of gestational age. RPTAT: AADD .Manan Christianson MD, MD Date Time Electronically viewed and signed by .Manan Christianson MD, on 08/13/2017 17:38 .B/ CC: IVY MICHAEL MD Obstetrical Complications: None Medical Complications: None Past Family/Social History * Past Medical, Surgical, Family and Obstetric Histories reviewed from chart. OB Admission Exam Vital Signs Vital Signs Vital Signs Date Time Temp Pulse Resp B/P Pulse Ox O2 Delivery O2 Flow Rate FiO2 08/13/17 13:05 98.0 103 20 100/59 Room Air Physical Exam HEENT: WNL Heart: Rhythm Normal Lungs: Clear, Equal Abdomen: WNL Extremities: Normal Reflexes: Normal Cervical Dilatation: Fingertip Effacement: 25% Station: -3 Membranes: Intact Heart Rate: 140's Accelerations: Accelerations Present Decelerations: No Decelerations Last 72 hours Lab Results CBC & BMP 08/13/17 18:50 OB Assessment/Plan Reason for admission: other Other Assessment: Term gestation with decreased ROYER Induction Method: per Pitocin Protocol Other plan: Antibiotics for GBS prophylaxis Epidural anesthesia as needed IVY MICHAEL MD Aug 13, 2017 20:00
[2017-08-13 20:33] LABS: PARTIAL THROMBOPLASTIN TIME 29.9 Sec (25.0-35.0)
[2017-08-13] MEDS: AMPICILLIN 1 GM/NS (PMX) 50 ML IV SCH (23:09)
[2017-08-14] MEDS: LACTATED RINGER'S 1,000 ML IV SCH ×2 (01:51→08:19)
[2017-08-14] MEDS: AMPICILLIN 1 GM/NS (PMX) 50 ML IV SCH ×2 (03:09→07:00)
[2017-08-14] MEDS: LACTATED RINGER'S 1,000 ML IV PRN ×2 (04:46→06:01)
[2017-08-14] MEDS ORDERED: FENTAnyl 2MCG/ML-ROPIV 0.2% 100 ML ONE (05:10)
[2017-08-14] MEDS ORDERED: DIPHENHYDRAMINE 50 MG INJ IV PRN (06:00)
[2017-08-14] MEDS ORDERED: NALOXONE (0.4 MG/ML) INJ IV PRN (06:00)
[2017-08-14] MEDS ORDERED: FENTAnyl 2MCG/ML-ROPIV 0.2% 100 ML BAG EPI SCH (06:00)
[2017-08-14] MEDS ORDERED: ONDANSETRON 4 MG INJ IV PRN ×2 (06:00→12:30)
[2017-08-14] MEDS ORDERED: OXYTOCIN 30 UNITS/LR 500 ML IV PRN (12:30)
[2017-08-14] MEDS ORDERED: METHYLERGONOVINE 0.2 MG INJ IM PRN (12:30)
[2017-08-14] MEDS ORDERED: WITCH HAZEL/GLYCERIN PAD PR PRN (12:30)
[2017-08-14] MEDS ORDERED: BENZOCAINE 20% 56 ML SPRAY TOP PRN (12:30)
[2017-08-14] MEDS ORDERED: ZOLPIDEM 5 MG TAB PO PRN (12:30)
[2017-08-14] MEDS ORDERED: ACETAMINOPHEN 325 MG TAB PO PRN (12:30)
[2017-08-14] MEDS ORDERED: CARBOPROST 250 MCG INJ IM PRN (12:30)
[2017-08-14] MEDS ORDERED: SENNA/DOCUSATE NA (8.6MG/50MG) TAB PO PRN (12:30)
[2017-08-14] MEDS ORDERED: MISOPROSTOL 200 MCG TAB PR PRN (12:30)
[2017-08-14] MEDS ORDERED: LANOLIN 7 GM TUBE TOP PRN (12:30)
[2017-08-14] MEDS ORDERED: OXYCODONE/ASPIRIN (4.88/325) TAB PO PRN ×2 (12:30)
[2017-08-14] MEDS ORDERED: LACTATED RINGER'S 1,000 ML IV* SCH (12:30)
[2017-08-14] MEDS ORDERED: DIBUCAINE 1% 30 GM OINT PR PRN (12:30)
--- NOTE | 2017-08-14 12:30 | LDN ---
Date/Time of Note Date/Time of Note DATE: 08/14/17 TIME: 12:28 Delivery Summary Normal spontaneous vaginal delivery Weeks of Gestation 39 Placenta Delivered: Spontaneously Meconium: none Perineal laceration: 2 Laceration repair: Secondary degree perineal laceration repaired with 2-0 chromic and 3-0 chromic Anesthesia type: Epidural Estimated blood loss: 150 Sponge & Needle done & correct: Yes All needle counts correct: Yes Any foreign bodies felt in the: No Problems: Infant Delivery Information Sex Infant Sex: female Apgars 1 Minute: 9 5 Minute: 9 Suctioning Nose & mouth suctioned at carline: Yes Delee suction performed: Yes Umbilical Cord Umbilical cord with: 3 Vessels Cord presentations: nuchal cord Nuchal cord present X: 1 Cord Blood was obtained: Yes OLI SPAIN MD Aug 14, 2017 12:30
[2017-08-14] MEDS ORDERED: METOCLOPRAMIDE 10 MG INJ ONE (12:59)
[2017-08-14] MEDS ORDERED: morphine SULFATE/PF (10 MG/10 ML) INJ ONE (12:59)
[2017-08-14] MEDS ORDERED: OXYTOCIN 30 UNITS/LR 500 ML IV ONE (12:59)
[2017-08-14] MEDS ORDERED: KETOROLAC 30 MG INJ ONE (13:00)
[2017-08-14] MEDS ORDERED: PHENYLephrine (100 MCG/ML) 5ML SYG ONE (14:04)
[2017-08-14 14:20] VITALS: BP 106/58; PULSE 71; RESP 18
[2017-08-14 14:50] VITALS: BP 108/59; PULSE 74; RESP 19
[2017-08-14] MEDS: IBUPROFEN 600 MG TAB PO SCH (17:56)
[2017-08-14 20:30] VITALS: BP 100/51; PULSE 78; RESP 18
[2017-08-14] MEDS: SENNA/DOCUSATE NA (8.6MG/50MG) TAB PO SCH (22:01)
[2017-08-15] MEDS: IBUPROFEN 600 MG TAB PO SCH ×5 (00:13→23:36)
[2017-08-15 00:15] VITALS: BP 105/54; PULSE 72
[2017-08-15 03:45] VITALS: BP 107/60; PULSE 79; RESP 18
[2017-08-15 08:10] VITALS: BP 97/52; PULSE 68; RESP 20
[2017-08-15] MEDS: SENNA/DOCUSATE NA (8.6MG/50MG) TAB PO SCH ×2 (09:12→21:27)
[2017-08-15 09:59] LABS: BASOPHILS % 0.3 % (0.0-2.0); EOSINOPHILS # 0.2 10^3/ul (0.0-0.5); EOSINOPHILS % 2.2 % (0.0-7.0); HEMATOCRIT 35.3 % (37.0-47.0); HEMOGLOBIN 11.6 g/dl (12.0-16.0); LYMPHOCYTES # 2.7 10^3/ul (0.8-2.9); LYMPHOCYTES % 24.9 % (15.0-51.0); MEAN CORPUSCULAR HEMOGLOBIN 29.1 pg (29.0-33.0); MEAN CORPUSCULAR HGB CONC 32.9 g/dl (32.0-37.0); MEAN CORPUSCULAR VOLUME 88.7 fl (82.0-101.0); MEAN PLATELET VOLUME 12.3 fl (7.4-10.4); MONOCYTE # 0.7 10^3/ul (0.3-0.9); MONOCYTES % 6.2 % (0.0-11.0); NEUTROPHIL # 7.1 10^3/ul (1.6-7.5); NEUTROPHILS % 65.7 % (39.0-77.0); PLATELET COUNT 178 10^3/UL (140-415); RED BLOOD COUNT 3.98 10^6/ul (4.20-5.40); RED CELL DISTRIBUTION WIDTH 15.9 % (11.5-14.5); WHITE BLOOD COUNT 10.8 10^3/ul (4.8-10.8)
--- NOTE | 2017-08-15 13:49 | PD.PPDC ---
METALLURGICAL SPECIALIST Discharge Instruction Condition Patient Condition: Good Diet Diet: Resume Regular Diet Activity/Restrictions Activity: Normal Activity May Shower Restrictions: No Exercising No Lifting No Driving No Sexual Activity Nothing in the Vagina No [place] No Tampons, douche Follow-up Follow-up with Physician: 3, Week/Weeks Return to clinic for GAMMA OPERATOR Instructions: Fever greater than 101 Chills Worsening abdominal pain Excessive Vaginal Bleeding More than 2 pads per hour Unable to tolerate diet OB Instructions: Breast Tenderness Depression Blurried Vision Headache Surgical Instructions: Incisional Drainage Incisional Redness OLI SPAIN MD Aug 15, 2017 13:49
--- NOTE | 2017-08-15 13:50 | DS ---
Date/Time of Note Date/Time of Note DATE: 08/15/17 TIME: 13:50 Obstetrical Discharge Record Final Diagnosis Final Diagnosis: Term delivered Vaginal Delivery Obstetrical Delivery: Spontaneous Condition on Discharge Physical Assessment Voiding: Yes Bowel Movement: Yes Breast: Soft, non-tender, Filling Fundus: Firm Calf Tenderness: No Patient Condition: Fair OLI SPAIN MD Aug 15, 2017 13:50
[2017-08-15 16:00] VITALS: BP 99/55; PULSE 74; RESP 16
[2017-08-15 19:40] VITALS: BP 100/55; PULSE 73; RESP 18
[2017-08-16 03:30] VITALS: BP 104/70; PULSE 61; RESP 18
[2017-08-16] MEDS: IBUPROFEN 600 MG TAB PO SCH ×2 (06:00→12:01)
[2017-08-16 08:00] VITALS: BP 98/54; PULSE 64; RESP 18
[2017-08-16] MEDS: SENNA/DOCUSATE NA (8.6MG/50MG) TAB PO SCH (10:27)
[2017-08-16 14:27] LABS: RUBELLA ANTIBODY - IGG 2.77 index
== END 2017-08-16 15:38 | disposition home or self-care (01) | DRG 775 ==
LOC: OBT 12:49 → L-D 12:50 → OBT 16:30 → L-D 16:30 → PP1 08-14 14:11
PROVIDERS: ADMIT Obstetrics & Gynecology; ATTEND Obstetrics & Gynecology
PROC: 10E0XZZ Delivery of Products of Conception, External Approach (ICD-10-PCS; principal; 2017-08-14)
PROC: 0KQM0ZZ Repair Perineum Muscle, Open Approach (ICD-10-PCS; 2017-08-14)
PROC: 3E033VJ Introduction of Other Hormone into Peripheral Vein, Percutaneous Approach (ICD-10-PCS; 2017-08-14)
DX: O41.03X0 Oligohydramnios, third trimester, not applicable or unspecified (principal); O69.81X0 Labor and delivery complicated by cord around neck, without compression, not applicable or unspecified; O70.1 Second degree perineal laceration during delivery; Z3A.39 39 weeks gestation of pregnancy; Z37.0 Single live birth
CPT/HCPCS: 62319; 76815; 76818; 85025; 85610; 85730; 86592; 86703; 86762; 86900; 86901; 87340; A4310; G0463; J0290; J1885; J2274; J2370; J2590; J2765; J3010; J7120

== ENCOUNTER 2018-01-22 20:57 | Emergency (ER) | END 2018-01-22 23:48 | disposition home or self-care (01) ==

== ENCOUNTER → 2019-06-09 | Emergency (ER) | payer OTHER ==
[~2019-06-09] VITALS: Wt 75.0 kg
[~2019-06-09] MED LIST changes: +AMOX500C2 PO; +IBUP-1542 PO; +ONDA4TAB14 PO; +ONDA4TAB8 PO
[2019-06-09 14:54] VITALS: BP 102/62; PULSE 82; RESP 18
--- NOTE | 2019-06-09 18:49 | ERD ---
ER Documentation Chief Complaint Chief Complaint FEVER COUGH AND CHILLS FOR THE PAST FEW DAYS WITH THROAT PAIN HPI 28 year old female presents to the ED complaining of fever, Sore throat, and Nausea. She states that her symptoms began 2 days ago. She states her throat hurts 6/10 pain that is constant, worse with swallowing, and sharp/aching in character. She has recorded fevers of 101 F at home. She denies coughing, CP, SOB but does report nausea. Denies Vomiting. Her symptoms are worse at night time. She has tried taking Dayquil and Nyquil with no relief of her symptoms. She denies any recent travel or sick contacts. ROS All systems reviewed and are negative except as per history of present illness. Medications Home Meds Active Scripts Ibuprofen* (Motrin*) 600 Mg Tab, 600 MG PO Q6H PRN for PAIN AND OR ELEVATED TEMP, #30 TAB Prov:PARIS MANUEL PA-C 06/09/19 Ondansetron (Ondansetron Odt) 4 Mg Tab.rapdis, 4 MG PO Q6H PRN for NAUSEA AND/OR VOMITING, #16 TAB Prov:PARIS MANUEL PA-C 06/09/19 Amoxicillin* (Amoxicillin*) 500 Mg Cap, 1000 MG PO DAILY for 10 Days, CAP Prov:PARIS MANUEL PA-C 06/09/19 Ondansetron Hcl* (Zofran*) 4 Mg Tablet, 4 MG PO Q6H for NAUSEA AND/OR VOMITING, #30 TAB Prov:HEATH JARRETT 01/22/18 Reported Medications Vits W-Ca,Fe,Fa(<1MG) ( Vitamins) 1 Tab Tablet, 1 TAB PO DAILY 05/25/15 Allergies Allergies: Coded Allergies: No Known Drug Allergies (Verified Allergy, Mild, 08/07/17) PMhx/Soc Hx Alcohol Use: No Hx Substance Use: No Hx Tobacco Use: No Smoking Status: Never smoker FmHx Family History: No diabetes Physical Exam Vitals Vital Signs Date Temp Pulse Resp B/P (MAP) Pulse Ox O2 O2 Flow FiO2 Time Delivery Rate 06/09/19 98.5 82 18 102/62 98 14:54 (75) Physical Exam Const: No acute distress Head: Atraumatic Eyes: Normal Conjunctiva, PERRLA ENT: Normal External Ears, Nose and Mouth. Throat: Red and most without exudates Neck: Full range of motion. Anterior cervical LAD present Resp: Clear to auscultation bilaterally Cardio: Regular rate and rhythm, no murmurs Abd: Soft, non tender, non distended. Normal bowel sounds Skin: No petechiae or rashes Back: No midline or flank tenderness Ext: No cyanosis, or edema Neur: Awake and alert Psych: Normal Mood and Affect Procedures/MDM ED COURSE: The patient was stable throughout ED course. I kept the patient informed of laboratory and diagnostic imaging results throughout the ED course. MEDICAL DECISION MAKING: Patient is a 28 year old female complaining of fever, sore throat x 2 days. Patient's physical exam is consistent with presumed strep pharyngitis. Based on [facility] Criteria, patient has reported fever at home, Anterior Cervical LAD, no cough. Patient is appropriate for outpatient antibiotics. Patient's physical exam include lungs which were clear to auscultation and a normal pulse oximetry. Bilateral ears pearly roberts. No tenderness to palpation of tragus or mastoid. Low suspicion for mastoiditis, otitis externa, otitis media. Patient is speaking in full sentences. There is a low suspicion for pneumonia, epiglottitis, croup, sinusitis, peritonsillar abscess, hands foot mouth disease, scarlet fever, kawasaki disease, retropharyngeal abscess, meningitis, sepsis, acute abdomen or other emergent conditions. Vital signs were reviewed. Patient is afebrile. Patient was not hypoxic. Patient was hemodynamically stable. Patient was told to follow up with primary care for further care and management. PRESCRIPTION: Amoxicillin, motrin, Zofran DISCHARGE: At this time, patient is stable for discharge and outpatient management. I have instructed the patient to follow-up with his/her primary care physician in 1-2 days. I have discussed with the patient the possibility of needing to see a specialist for further workup and imaging studies if symptoms persist. I have instructed the patient to promptly return to the ER for any new or worsening symptoms including increased pain, fever, nausea, vomiting, weakness or LOC. The patient expressed understanding of and agreement with this plan. All questions were answered. Home care instructions were provided. Disclaimer: Inadvertent spelling and grammatical errors are likely due to EHR/dictation software use and do not reflect on the overall quality of patient care. Also, please note that the electronic time recorded on this note does not necessarily reflect the actual time of the patient encounter. Departure Diagnosis: Primary Impression: Strep throat Additional Impression: Nausea Condition: Fair Patient Instructions: Strep Throat Referrals: [facility] YOU HAVE RECEIVED A MEDICAL SCREENING EXAM AND THE RESULTS INDICATE THAT YOU DO NOT HAVE A CONDITION THAT REQUIRES URGENT TREATMENT IN THE EMERGENCY DEPARTMENT. FURTHER EVALUATION AND TREATMENT OF YOUR CONDITION CAN WAIT UNTIL YOU ARE SEEN IN YOUR DOCTORS OFFICE WITHIN THE NEXT 1-2 DAYS. IT IS YOUR RESPONSIBILITY TO MAKE AN APPOINTMENT FOR FOLOW-UP CARE. IF YOU HAVE A PRIMARY DOCTOR --you should call your primary doctor and schedule an appointment IF YOU DO NOT HAVE A PRIMARY DOCTOR YOU CAN CALL OUR PHYSICIAN REFERRAL HOTLINE AT IF YOU CAN NOT AFFORD TO SEE A PHYSICIAN YOU CAN CHOSE FROM THE FOLLOWING [facility] [address] [facility] [address] [facility] [address] [facility] [address] [facility] [address] [facility]. [facility] [address] [facility]. [facility] YOU HAVE RECEIVED A MEDICAL SCREENING EXAM AND THE RESULTS INDICATE THAT YOU DO NOT HAVE A CONDITION THAT REQUIRES URGENT TREATMENT IN THE EMERGENCY DEPARTMENT. FURTHER EVALUATION AND TREATMENT OF YOUR CONDITION CAN WAIT UNTIL YOU ARE SEEN IN YOUR DOCTORS OFFICE WITHIN THE NEXT 1-2 DAYS. IT IS YOUR RESPONSIBILITY TO MAKE AN APPOINTMENT FOR FOLOW-UP CARE. IF YOU HAVE A PRIMARY DOCTOR --you should call your primary doctor and schedule and appointment IF YOU DO NOT HAVE A PRIMARY DOCTOR YOU CAN CALL OUR PHYSICIAN REFERRAL HOTLINE AT . IF YOU CAN NOT AFFORD TO SEE A PHYSICIAN YOU CAN CHOSE FROM THE FOLLOWING [facility] INSTITUTIONS: [facility] [address] [place] [address] [facility] [address] [place] [address] [facility] [address] [place] [address] Additional Instructions: Call your primary care doctor TOMORROW for an appointment during the next 1-2 days.See the doctor sooner or return here if your condition worsens before your appointment time. PARIS MANUEL PA-C Jun 09, 2019 18:49
== END | disposition home or self-care (01) ==
LOC: FTE 14:41
DX: J02.9 Acute pharyngitis, unspecified (principal); R11.0 Nausea
CPT/HCPCS: 99283